=== PATIENT | male | born 1935 | race Caucasian/White ===

== ENCOUNTER → 2017-01-05 | Outpatient (REF) | payer MEDICARE | LOC: M SMT 16:57 | PROVIDERS: ATTEND Urology | DX: Z85.51 Personal history of malignant neoplasm of bladder (principal) ==

== ENCOUNTER → 2018-01-18 | Outpatient (REF) | payer MEDICARE | LOC: M LAB REF 16:44 | DX: Z85.51 Personal history of malignant neoplasm of bladder (principal) | CPT/HCPCS: 88108 ==

== ENCOUNTER → 2019-01-24 | Outpatient (REF) | payer MEDICARE | LOC: M SMT 12:55 | PROVIDERS: ATTEND Urology | DX: Z85.51 Personal history of malignant neoplasm of bladder (principal) ==

== ENCOUNTER → 2020-01-30 | Outpatient (REF) | payer MEDICARE | LOC: M SMT 13:04 | PROVIDERS: ATTEND Urology | DX: Z85.51 Personal history of malignant neoplasm of bladder (principal) ==